=== PATIENT | female | born 1990 | race African-American/Black ===

== ENCOUNTER 2018-11-04 07:37 | Inpatient (IN) | payer BC, MEDICAID ==
[2018-11-04] VITALS (7 sets, daily range): BP systolic 118–136; BP diastolic 62–92
[~2018-11-04] VITALS: Ht 167.6 cm; Wt 68.0 kg
[~2018-11-04 07:37] MED LIST: ALBUTEROL SULF8.5 GM INH; CEPHALEXIN500 MG ORAL; CLARITIN-D 121 EAC1 ORAL; PROMETHAZINE-C118 M1 ORAL; TYLENOL EXTRA500 MG ORAL; ZITHROMAX TRI-500 MG ORAL
--- NOTE | 2018-11-04 08:13 | NUR ---
ED Nurse Note: PT. ANA. AMBULATORY. CAME IN TO ER DUE TO LOWER BACK PAIN X 3DAYS WITH CONSTIPATION X 7 DAYS. NO MEDS TAKEN PRIOR TO ER ARRIVAL
--- NOTE | 2018-11-04 08:20 | NUR ---
ED Nurse Note: ERMD at bedside.
[2018-11-04] MEDS ORDERED: Isovue-300 100ml vial INJ PRN (08:30)
[2018-11-04] MEDS ORDERED: HYDROmorphone 1mg/ml Carpuject IVP ONE (08:30)
--- NOTE | 2018-11-04 08:30 | NUR ---
ED Nurse Note: will move to regular room from fast track for further assessment and evaluation.
--- NOTE | 2018-11-04 08:31 | Emergency Room Report ---
History of Present Illness General Chief Complaint: Lower Back Pain or Injury Source: Patient Present Illness HPI Otherwise healthy female who complains of abdominal pain on the left lower quadrant with no radiation of the last 3 days. She was seen at [facility] yesterday and had an ultrasound showed which showed "kidney contusion". She complains of multiple episodes of vomiting. Cannot hold anything down. She describes the pain as dull. Allergies: Coded Allergies: No Known Allergies (Unverified , 08/09/14) Patient History Past Medical History: none Past Surgical History: none Pertinent Family History: none Now: No Nursing Documentation-[facility] Past Medical History: No History, Except For Hx Asthma: Yes Review of Systems All Other Systems: negative except mentioned in HPI Physical Exam Vital Signs Date Time Temp Pulse Resp B/P (MAP) Pulse Ox O2 Delivery O2 Flow Rate FiO2 11/04/18 07:47 98.8 58 19 126/74 98 Room Air General Appearance: well appearing, no apparent distress Head: normocephalic, atraumatic ENT: hearing grossly normal, normal voice Neck: full range of motion, supple Respiratory: no respiratory distress, speaking full sentences Gastrointestinal: soft, other - mild tenderness to LLQ. No guarding, no rebound Genitourinary: normal inspection, no CVA tenderness Neurologic: normal inspection, alert, oriented x3 Medical Decision Making Diagnostic Impression: Primary Impression: Vomiting ER Course Patient presents significant complexity or risk requiring multiple bedside evaluation. Patient alert and nontoxic appearing. No other associated symptoms. I was particularly very concern about intractable vomiting, mesenteric ischemia, diverticulitis, ovarian torsion, pyelonephritis. Patient has had multiple bedside evaluations. The patient had a CT done. She was also given IV fluids. However the patient is not able to tolerate a by mouth challenge despite multiple attempts and despite antiemetic medications. Therefore, the patient will be admitted to the MedSur unit for observation for intractable vomiting. CT/MRI/US Diagnostic Results CT/MRI/US Diagnostic Results : Impression CT of abdomen and pelvis showed distentio small loops of bowel with air-fluid levels. Suggestive of mild ileus or enteris No evidence of bowel obstruction. Last Vital Signs Date Time Temp Pulse Resp B/P (MAP) Pulse Ox O2 Delivery O2 Flow Rate FiO2 11/04/18 07:50 98.8 58 19 126/74 98 Room Air Disposition: ADMITTED INPATIENT Condition: Serious ALBERTO MATHIS Nov 04, 2018 08:31
--- NOTE | 2018-11-04 08:42 | NUR ---
ED Nurse Note: IVF and medication given. pt reported that she has been dehydrated and cannot urinate at this moment. will take urine sample later.
[2018-11-04 08:50] LABS: BASOPHILS % (AUTO) 0.4 % (0.0-2.0); EOSINOPHILS % (AUTO) 0.1 % (0.0-3.0); HEMATOCRIT 42.7 % (37.0-47.0); HEMOGLOBIN 14.3 G/DL (12.0-16.0); LYMPHOCYTES % (AUTO) 10.9 % (20.0-45.0); MEAN CORPUSCULAR VOLUME 94 FL (80-99); MONOCYTES % (AUTO) 6.7 % (1.0-10.0); NEUTROPHILS % (AUTO) 81.8 % (45.0-75.0); PLATELET COUNT 229 K/UL (150-450); RED BLOOD COUNT 4.55 M/UL (4.20-5.40); RED CELL DISTRIBUTION WIDTH 12.3 % (11.6-14.8); WHITE BLOOD COUNT 13.3 K/UL (4.8-10.8)
[2018-11-04 08:59] LABS: ANION GAP 8 mmol/L (5-15); BLOOD UREA NITROGEN 25 mg/dL (7-18); CALCIUM 9.8 MG/DL (8.5-10.1); CARBON DIOXIDE 26 MMOL/L (21-32); CHLORIDE 105 MMOL/L (98-107); CREATININE 1.4 MG/DL (0.55-1.30); POTASSIUM 3.9 MMOL/L (3.5-5.1); SODIUM 139 MMOL/L (136-145)
[2018-11-04 09:10] LABS: ALANINE AMINOTRANSFERASE 21 U/L (12-78); ALBUMIN 4.4 G/DL (3.4-5.0); ALBUMIN/GLOBULIN RATIO 1.3 (1.0-2.7); ALKALINE PHOSPHATASE 44 U/L (46-116); ASPARTATE AMINO TRANSFERASE 36 U/L (15-37); BILIRUBIN,TOTAL 1.2 MG/DL (0.2-1.0)
--- NOTE | 2018-11-04 09:26 | NUR ---
ED Nurse Note: Pt still unable to urinate at this time.
[2018-11-04 09:32] LABS: BILIRUBIN,DIRECT 0.3 MG/DL (0.0-0.3)
--- NOTE | 2018-11-04 10:15 | NUR ---
ED Nurse Note: Collected urine and sent.
--- NOTE | 2018-11-04 10:39 | NUR ---
ED Nurse Note: Dr Vamsi mccann to continue with CT abdome with contrast with creatinine of 1.4. Waiting for urine test result.
--- NOTE | 2018-11-04 10:50 | NUR ---
ED Nurse Note: Called lab to ff up with urine reflex microscopy test.
[2018-11-04 10:53] LABS: APPEARANCE,URINE CLEAR; BILIRUBIN, URINE NEGATIVE (NEGATIVE); GLUCOSE, URINE (UA) NEGATIVE (NEGATIVE); KETONES,URINE 3+ (NEGATIVE); LEUKOCYTE ESTERASE ,URINE 1+ (NEGATIVE); NITRITE,URINE NEGATIVE (NEGATIVE); PH,URINE 6 (4.5-8.0); PROTEIN,URINE 2+ (NEGATIVE); UROBILINOGEN,URINE NORMAL MG/DL (0.0-1.0)
[2018-11-04 10:57] LABS: COLOR,URINE YELLOW
--- NOTE | 2018-11-04 10:59 | NUR ---
ED Nurse Note: Pt taken to CT via dylan.
--- NOTE | 2018-11-04 11:11 | NUR ---
ED Nurse Note: Pt came back from CT and stable. VSS.
--- NOTE | 2018-11-04 11:33 | Diagnostic Imaging Report ---
EXAM: CT Abdomen and Pelvis With Intravenous Contrast CLINICAL HISTORY: PAIN TECHNIQUE: Axial computed tomography images of the abdomen and pelvis with intravenous contrast. CTDI is 11.57 mGy and DLP is 624 mGy-cm. One or more of the following dose reduction techniques were used: automated exposure control, adjustment of the mA and/or kV according to patient size, use of iterative reconstruction technique. COMPARISON: No relevant prior studies available. FINDINGS: Lung bases: Unremarkable. No consolidation. No effusions. ABDOMEN: Liver: Unremarkable. No mass. Gallbladder and bile ducts: Unremarkable. No calcified stones. No ductal dilation. Pancreas: Unremarkable. No mass. No ductal dilation. Spleen: Unremarkable. No splenomegaly. Adrenals: Unremarkable. No mass. Kidneys and ureters: Unremarkable. No solid mass. No hydronephrosis. Stomach and bowel: Mild distention of small bowel loops with luminal air fluid levels, most prominent in the left upper quadrant, suggesting mild ileus or enteritis. No evidence of bowel obstruction. Mild fecal retention in the right colon. Remainder of the colon appears unremarkable. GE junction and stomach appear unremarkable. PELVIS: Appendix: The appendix appears normal. Bladder: Unremarkable. No visible stones. Reproductive: 1.5 cm peripherally enhancing right ovarian cyst. The uterus and ovaries otherwise appear unremarkable. ABDOMEN and PELVIS: Intraperitoneal space: Trace free fluid in the pelvic cul-de-sac, also likely physiologic. No free air. Bones/joints: No acute fracture. No dislocation. Soft tissues: Unremarkable. Vasculature: Unremarkable. No abdominal aortic aneurysm. Lymph nodes: Unremarkable. No enlarged lymph nodes. IMPRESSION: 1. Mild distention of small bowel loops with luminal air fluid levels, most prominent in the left upper quadrant, suggesting mild ileus or enteritis. No evidence of bowel obstruction. 2. 1.5 cm peripherally enhancing right ovarian cyst. This is likely a physiologic cyst, such as a corpus luteum. 3. Trace free fluid in the pelvic cul-de-sac, also likely physiologic.
--- NOTE | 2018-11-04 13:05 | NUR ---
ED Nurse Note: Pt is asking for more pain medication. 04/[address] Agustin notified and waiting for new orders.
--- NOTE | 2018-11-04 13:38 | NUR ---
ED Nurse Note: Mother at the bed side.
[2018-11-04] MEDS: Sodium Chloride 550 ML IV SCH ×2 (13:54→18:24)
[2018-11-04] MEDS ORDERED: Morphine Sulfate 4mg/ml Inj (IV USE ONLY) IVP ONE (14:00)
--- NOTE | 2018-11-04 14:02 | NUR ---
ED Nurse Note: Dr Vargas at the bed side.
[2018-11-04] MEDS ORDERED: Morphine Sulfate 2mg/ml Inj(IV/IM USE ONLY) IVP PRN (14:15)
--- NOTE | 2018-11-04 14:18 | NUR ---
ED Nurse Note: Report given to Tara GRANADOS of Med surg unit.
--- NOTE | 2018-11-04 15:30 | NUR ---
NURSE NOTES: Received report from Jazmin GRANADOS. pt a/a/o x4 laying in bed with no signs of distress or other issues at this time. pt c/o of pain in the LLQ pain radiating to the back. per report it was given Dilaudid and Morphine in the ER prior to transfer patient up to the floor. RN will medicate as indicated by MD. IV on the left A gauge #20 running NS bolus, RN will change fluids as MD ordered. VS WNL:98.0, 53, 18, 136/84 99% RA, however pt HR is the lows 43-48. RN notified Dr. Vargas, who stated that he is aware and that stockbroker has seen the patient. pt's mother at the bedside. RN will carry on orders and will f/u as needed.
--- NOTE | 2018-11-04 16:00 | History and Physical Report ---
DATE OF ADMISSION: 11/04/2018 REASON FOR ADMISSION: Nausea, vomiting. HISTORY OF PRESENT ILLNESS: The patient is a 28-year-old female who presented to the emergency room for evaluation and care of abdominal pain with nausea, vomiting over the past 3 to 7 days. The patient had been seen at [facility] yesterday. The patient was given IV pain medication and discharged home. She returns complaining of nausea and vomiting, not being able to eat or drink and keep anything down. In the emergency room, CT of the abdomen and pelvis was undertaken, which showed mild distention of small bowel loops with luminal air-fluid levels suggesting either very mild ileus or enteritis. No evidence of bowel obstruction. The patient says she has low back pain and is requesting narcotics. PAST MEDICAL HISTORY: None. PAST SURGICAL HISTORY: None. FAMILY HISTORY: Noncontributory. REVIEW OF SYSTEMS: NEUROLOGIC: The patient denies headache, change in vision, syncope, presyncopal episodes. CARDIOVASCULAR: No current chest pain, palpitations, angina. PULMONARY: No difficulty breathing, productive cough, sputum. GASTROINTESTINAL/GENITOURINARY: The patient having nausea and vomiting. No diarrhea. Had been constipated, but has not eaten over the past week. LABORATORY DATA: Dated 11/04/2018, white cell count 13.3, hemoglobin 14.3, platelet count 229. Sodium 139, potassium 3.9, BUN 25, creatinine 1.4, calcium 9.8. Total bilirubin 1.2, direct bilirubin 0.3. AST and ALT within normal limits. Alkaline phosphatase 44, albumin 4.4. Quantitative hCG 1. PHYSICAL EXAMINATION: VITAL SIGNS: Blood pressure 125/81, respiratory rate 18, pulse 62, temperature 97.8, 100% oxygen saturation on room air. GENERAL: The patient awake, in no overt distress. HEENT: Extraocular muscles intact. No lymphadenopathy. Oropharyngeal mucosa clear and dry. CARDIOVASCULAR: S1 and S2. No rubs or gallops. Regular rate. PULMONARY: Clear to auscultation bilaterally. No rales, rhonchi, or wheezes. ABDOMINAL: Nondistended, nontender. EXTREMITIES: No edema noted. ASSESSMENT AND PLAN: 1. Nausea, vomiting with no diarrhea suspicious for viral gastroenteritis. The patient will be aggressively hydrated and Zofran initiated. 2. Abdominal pain. The patient complaining mainly of nausea and vomiting with no diarrhea. Gastroenterology has been consulted. Most likely viral gastroenteritis. We will continue to monitor and hydrate the patient. 3. DVT prophylaxis with SCDs. 4. Acute kidney injury with creatinine up to 1.4 in a 28-year-old female. We will continue aggressive hydration. Recheck a.m. labs. Renal function should improve with hydration as this is most likely prerenal in nature. Luis Enrique Vargas MD DR: SKYLER JOB#: [id number] CC:
[2018-11-04] MEDS: D5NS 1,000 ML IV SCH (18:57)
--- NOTE | 2018-11-04 19:00 | NUR ---
Report received from DARWIN Pacheco.
--- NOTE | 2018-11-04 19:17 | NUR ---
HAND-OFF: Report given to Roge Rhodes pt instable condition.
--- NOTE | 2018-11-04 20:00 | NUR ---
Patient c/o nausea. Zofran was given at 1856. c/o headache, was given Tylenol. Would like Dilaudid instead of Morphine. Feels scratchy throat. Dr Vargas called, left message with above info.
--- NOTE | 2018-11-04 20:30 | NUR ---
NURSE NOTES: Patient alert, oriented. Bed in lowest position, call light within reach, side rails up x2. Visitor (mom) at bedside. Given ice chips. IVF on RAC, intact. Will continue to monitor.
--- NOTE | 2018-11-04 21:07 | NUR ---
NURSE NOTES: Called Dr Vargas, left message requesting med for nausea as Zofran is not due yet, Patient would like Dilaudid instead of Morphine for pain and c/o scratchy throat.
[2018-11-04] MEDS ORDERED: Guaifenesin/DM 10ml syrup ORAL PRN (21:30)
--- NOTE | 2018-11-04 21:45 | NUR ---
NURSE NOTES: Dr. Arredondo inputted orders in the computer for nausea and pain medicine. Will carry out orders.
[2018-11-04] MEDS: NS IVPB PRN (22:13)
[2018-11-04] MEDS: PROMETHAZINE HCL IVPB PRN (22:13)
[2018-11-04] MEDS: HYDROmorphone 1mg/ml Carpuject IM PRN (22:16)
[2018-11-05] VITALS: BP 113/63
[2018-11-05] MEDS: D5NS 1,000 ML IV SCH ×3 (00:42→18:54)
[2018-11-05 04:00] VITALS: BP 119/76
[2018-11-05] MEDS: HYDROmorphone 1mg/ml Carpuject IM PRN ×3 (04:34→17:28)
[2018-11-05] MEDS: NS IVPB PRN ×2 (04:45→17:28)
[2018-11-05] MEDS: PROMETHAZINE HCL IVPB PRN ×2 (04:45→17:28)
[2018-11-05 06:55] LABS: BASOPHILS % (AUTO) 0.9 % (0.0-2.0); EOSINOPHILS % (AUTO) 0.3 % (0.0-3.0); HEMATOCRIT 36.2 % (37.0-47.0); LYMPHOCYTES % (AUTO) 10.1 % (20.0-45.0); MEAN CORPUSCULAR VOLUME 96 FL (80-99); MONOCYTES % (AUTO) 6.9 % (1.0-10.0); NEUTROPHILS % (AUTO) 81.7 % (45.0-75.0); PLATELET COUNT 174 K/UL (150-450); RED BLOOD COUNT 3.78 M/UL (4.20-5.40); RED CELL DISTRIBUTION WIDTH 12.1 % (11.6-14.8); WHITE BLOOD COUNT 10.5 K/UL (4.8-10.8)
[2018-11-05 07:19] LABS: ANION GAP 4 mmol/L (5-15); BLOOD UREA NITROGEN 20 mg/dL (7-18); CALCIUM 8.7 MG/DL (8.5-10.1); CARBON DIOXIDE 28 MMOL/L (21-32); CHLORIDE 109 MMOL/L (98-107); POTASSIUM 3.9 MMOL/L (3.5-5.1); SODIUM 141 MMOL/L (136-145)
--- NOTE | 2018-11-05 07:37 | NUR ---
HAND-OFF: Report given to DARWIN Garcia. Pt in stable condition.
[2018-11-05 08:00] VITALS: BP 127/92
--- NOTE | 2018-11-05 09:42 | NUR ---
CASE MANAGEMENT:REVIEW 28YR OLD FEMALE TO ER CC; NAUSEA, VOMITING AND BACK PAIN SI: INTRACTABLE VOMITING 98.8 58 19 126/74 98% ON RA WBC+13.3 BUN+25 CR+1.4 IS: IV ZOFRAN IV DILAUDID 1L NS BOLUS X2 CT ABD/PELVIS : TELEMETRY STATUS
--- NOTE | 2018-11-05 10:13 | Nephrology Progress Note ---
Assessment/Plan Assessment/Plan A/P 1) IGNACIO- due to prenal vol depletion - resolved. Continue IVFs 2) N/V- likley viral gastroenteritis - IVFs and await GI evaluation 3) Narcotic seeking Behaviour- patient demanding dilaudid 4) DVT Prophylaxsis- SCDs DC patient once cleared by GI Subjective Date patient seen: Nov 05, 2018 Time patient seen: 10:10 ROS Limited/Unobtainable: No Gastrointestinal/Abdominal: Reports: nausea, vomiting Allergies: Coded Allergies: No Known Allergies (Unverified , 08/09/14) All Systems: reviewed and negative except above Subjective Patient looks better. Still nauseated with episodes of emesis Objective Last 24 Hour Vital Signs Date Time Temp Pulse Resp B/P (MAP) Pulse Ox O2 Delivery O2 Flow Rate FiO2 11/05/18 08:00 99.1 61 16 127/92 (104) 99 11/05/18 04:00 99.1 49 18 119/76 (90) 99 11/05/18 00:00 99.0 57 16 113/63 (80) 99 11/04/18 21:00 Room Air 11/04/18 20:00 98.4 45 16 136/92 (107) 98 11/04/18 16:30 98.0 53 18 136/84 (101) 100 11/04/18 16:02 Room Air 11/04/18 15:05 98.6 58 16 118/62 100 Room Air 11/04/18 15:05 98.6 58 18 118/62 100 Room Air 11/04/18 14:24 98.6 11/04/18 12:35 97.8 62 18 125/81 100 Room Air Intake and Output 11/04/18 11/05/18 19:00 07:00 Intake Total 2000 ml 1212 ml Output Total 0 ml 50 ml Balance 2000 ml 1162 ml Intake Oral 0 ml IV Total 2000 ml 1212 ml Output Urine Total 0 ml Emesis 50 ml # Voids 1 Laboratory Tests 11/04/18 10:15: Urine Color Yellow, Urine Appearance Clear, Urine pH 6, Urine Specific [place] 1.015, Urine Protein 2+H, Urine Glucose (UA) Negative, Urine Ketones 3+H, Urine Blood 1+H, Urine Nitrite Negative, Urine Bilirubin Negative, Urine Urobilinogen Normal, Urine Leukocyte Esterase 1+H, Urine RBC 0-2, Urine WBC 2-4, Urine Squamous Epithelial Cells ModerateH, Urine Bacteria Few, Urine Mucus FewH, Urine HCG, Qualitative Negative 11/05/18 06:15: White Blood Count 10.5, Red Blood Count 3.78L, Hemoglobin 12.0, Hematocrit 36.2L , Mean Corpuscular Volume 96, Mean Corpuscular Hemoglobin 31.6H, Mean Corpuscular Hemoglobin Concent 33.1, Red Cell Distribution Width 12.1, Platelet Count 174, Mean Platelet Volume 7.5, Neutrophils (%) (Auto) 81.7H, Lymphocytes ( %) (Auto) 10.1L, Monocytes (%) (Auto) 6.9, Eosinophils (%) (Auto) 0.3, Basophils (%) (Auto) 0.9, Sodium Level 141, Potassium Level 3.9, Chloride Level 109H, Carbon Dioxide Level 28, Anion Gap 4L, Blood Urea Nitrogen 20H, Creatinine 1.0, Estimat Glomerular Filtration Rate > 60, Glucose Level 103, Calcium Level 8.7 Height (Feet): 5 Height (Inches): 6.00 Weight (Pounds): 78 General Appearance: no apparent distress, alert EENT: normal ENT inspection Neck: normal alignment, supple Cardiovascular: normal rate, regular rhythm Respiratory/Chest: lungs clear, normal breath sounds Abdomen: non tender, soft Edema: no edema noted Arm (L), no edema noted Arm (R), no edema noted Leg (L), no edema noted Leg (R), no edema noted Pedal (L), no edema noted Pedal (R), no edema noted Generalized Luis Enrique Vargas MD Nov 05, 2018 10:13
--- NOTE | 2018-11-05 11:52 | GI Initial Consult Note ---
History of Present Illness General Date patient seen: Nov 05, 2018 Time patient seen: 11:46 Reason for Hospitalization: Lower Back Pain or Injury Referring physician: VENTURA Reason for Consultation: N/V Present Illness HPI Otherwise healthy female who complains of abdominal pain on the left lower quadrant with no radiation of the last 3 days. She was seen at [facility] yesterday and had an ultrasound showed which showed "kidney contusion". She complains of multiple episodes of vomiting. Cannot hold anything down. She describes the pain as dull. GI consulted for complaints of nausea and vomiting. Patient seen, has complaint of nausea without vomiting. Patient states that she has had a few episodes of rectal bleeding which she describes as bright red. Patient denies any hematocrit emesis or coffee-ground. Current laboratory values reviewed; no anemia or no leukocytosis. No history of endoscopic colonoscopy at this time. Abdominal pelvis CT reviewed noted with a mild distention of the small bowel. The patient is having BMs and passing gas. Home Meds Reported Medications Loratadine/Pseudoephedrine (CLARITIN-D 12 HOUR TABLET) 1 Each Tab.er.12h, 1 TAB ORAL EVERY 12 HOURS, TAB 03/03/16 Discontinued Scripts Cephalexin* (KEFLEX*) 500 Mg Capsule, 500 MG ORAL EVERY 6 HOURS, #40 CAP Prov:Alex Bhatia MD 03/03/16 Acetaminophen* (TYLENOL EXTRA STRENGTH*) 500 Mg Tablet, 500 MG ORAL Q4HR PRN for fever/pain, #30 TAB 0 Refills Prov:Alex Bhatia MD 03/03/16 Albuterol Sulfate* (ALBUTEROL SULFATE MDI*) 8.5 Gm Hfa.aer.ad, 2 PUFF INH Q4H, # 1 INH 0 Refills Prov:ALYX GRIGGS P.A. 08/09/14 Codeine/Promethazine Hcl* (PROMETHAZINE-CODEINE SYRUP*) 118 Ml Syrup, 5 ML ORAL Q6H PRN for For Cough, #120 ML 0 Refills Prov:ALYX GRIGGS P.A. 08/09/14 Azithromycin (ZITHROMAX TRI-ALEX) 500 Mg Tablet, 500 MG ORAL DAILY, #1 PACK Prov:ALYX GRIGGS P.A. 08/09/14 Med list reviewed/reconciled: Yes Allergies: Coded Allergies: No Known Allergies (Unverified , 08/09/14) Patient History PMH Narrative Past Medical History: none Past Surgical History: none Pertinent Family History: none Now: No Nursing Documentation-PM Past Medical History: No History, Except For Hx Asthma: Yes Social History: Denies: smoking, alcohol use, drug use, other Review of Systems All Other Systems: negative except mentioned in HPI Physical Exam Vital Signs Date Time Temp Pulse Resp B/P (MAP) Pulse Ox O2 Delivery O2 Flow Rate FiO2 11/04/18 07:47 98.8 58 19 126/74 98 Room Air Sp02 EP Interpretation: reviewed, normal Labs Laboratory Tests Test 11/05/18 06:15 White Blood Count 10.5 K/UL (4.8-10.8) Red Blood Count 3.78 M/UL (4.20-5.40) L Hemoglobin 12.0 G/DL (12.0-16.0) Hematocrit 36.2 % (37.0-47.0) L Mean Corpuscular Volume 96 FL (80-99) Mean Corpuscular Hemoglobin 31.6 PG (27.0-31.0) H Mean Corpuscular Hemoglobin Concent 33.1 G/DL (32.0-36.0) Red Cell Distribution Width 12.1 % (11.6-14.8) Platelet Count 174 K/UL (150-450) Mean Platelet Volume 7.5 FL (6.5-10.1) Neutrophils (%) (Auto) 81.7 % (45.0-75.0) H Lymphocytes (%) (Auto) 10.1 % (20.0-45.0) L Monocytes (%) (Auto) 6.9 % (1.0-10.0) Eosinophils (%) (Auto) 0.3 % (0.0-3.0) Basophils (%) (Auto) 0.9 % (0.0-2.0) Sodium Level 141 MMOL/L (136-145) Potassium Level 3.9 MMOL/L (3.5-5.1) Chloride Level 109 MMOL/L (98-107) H Carbon Dioxide Level 28 MMOL/L (21-32) Anion Gap 4 mmol/L (5-15) L Blood Urea Nitrogen 20 mg/dL (7-18) H Creatinine 1.0 MG/DL (0.55-1.30) Estimat Glomerular Filtration Rate > 60 mL/min (>60) Glucose Level 103 MG/DL (74-106) Calcium Level 8.7 MG/DL (8.5-10.1) General Appearance: well appearing, no apparent distress, alert Head: normocephalic EENT: PERRL/EOMI, normal ENT inspection Neck: supple Respiratory: normal breath sounds, no respiratory distress Cardiovascular: normal rate Gastrointestinal: normal inspection, non tender, soft, normal bowel sounds, non -distended Rectal: deferred Genitourinary: no CVA tenderness Musculoskeletal: normal inspection, back normal Neurologic: normal inspection, alert, oriented x3, responsive Psychiatric: normal inspection, judgement/insight normal, memory normal Skin: normal inspection, normal color, no rash, warm/dry, palpation normal, well hydrated Lymphatic: normal inspection, no adenopathy Current Medications Current Medications Medications (Trade) Dose Ordered Sig/Linda Route PRN Reason Start Time Stop Time Status Last Admin Dose Admin Acetaminophen (Tylenol) 650 mg Q4H PRN ORAL Mild Pain (Pain Scale 1-3) 11/04/18 13:45 12/04/18 13:44 11/04/18 19:55 Barium Sulfate (Readi-Cat 2) 450 ml NOW PRN ORAL Radiology Procedure 11/04/18 08:30 11/06/18 08:26 Dextrose (Dextrose 50%) 25 ml Q30M PRN IV Hypoglycemia 11/04/18 13:45 12/04/18 13:44 Dextrose (Dextrose 50%) 50 ml Q30M PRN IV Hypoglycemia 11/04/18 13:45 12/04/18 13:44 Dextrose/Sodium Chloride 1,000 ml @ 100 mls/hr Q10H IV 11/04/18 14:42 12/04/18 14:41 11/05/18 07:18 Diphenhydramine HCl (Benadryl) 25 mg Q6H PRN ORAL Itching/Pruritis 11/04/18 13:45 12/04/18 13:44 Guaifenesin/ Dextromethorphan (Robitussin DM Syrup) 10 ml Q4H PRN ORAL For Cough 11/04/18 21:30 12/04/18 21:29 Hydromorphone HCl (Dilaudid) 0.5 mg Q4H PRN IM Moderate Pain (Pain Scale 4-6) 11/04/18 21:30 11/11/18 21:29 11/05/18 10:11 Iopamidol (Isovue-300 100ml) 100 ml NOW PRN INJ Radiology Procedure 11/04/18 08:30 Ondansetron HCl (Zofran) 4 mg Q6H PRN IVP Nausea & Vomiting 11/04/18 13:45 12/04/18 13:44 11/05/18 10:10 Promethazine HCl 25 mg/Sodium Chloride 56 ml @ 112 mls/hr Q6H PRN IVPB Refractory N/V 11/04/18 21:45 12/04/18 21:44 11/05/18 04:45 GI: Plan Problems: (1) Intractable vomiting (2) Vomiting (3) Viral syndrome Plan Abdominal pelvis CT reviewed >> Mild distention of small bowel loops with luminal air fluid levels, most prominent in the left upper quadrant, suggesting mild ileus or enteritis. No evidence of bowel obstruction. Avoid narcotic use, await bowel function to return symptomatic treatment at this time zofran prn IV hydration CLD, advance as tolerated OB stool r/o any GI bleed, which most likely is hemorrhoidal utox ordered follow labs Discussed with Dr. Wilson. Thank you for this patient referral, we will follow. The patient was seen and examined at bedside and all new and available data was reviewed in the patients chart. I agree with the above findings, impression and plan. (Patient seen earlier today. Signature stamp does not reflect patient encounter time.). - MD Nubia GaryAurora West HospitalDuarte PLASTIC PANEL INSTALLER Nov 05, 2018 11:52
[2018-11-05 12:00] VITALS: BP 127/87
--- NOTE | 2018-11-05 13:49 | Cardiology Progress Note ---
Assessment/Plan Assessment/Plan The patient is seen and examined, full consult note will be dictated. Objective Last 24 Hour Vital Signs Date Time Temp Pulse Resp B/P (MAP) Pulse Ox O2 Delivery O2 Flow Rate FiO2 11/05/18 12:00 98.6 59 16 127/87 (100) 99 11/05/18 09:00 Room Air 11/05/18 08:00 99.1 61 16 127/92 (104) 99 11/05/18 04:00 99.1 49 18 119/76 (90) 99 11/05/18 00:00 99.0 57 16 113/63 (80) 99 11/04/18 21:00 Room Air 11/04/18 20:00 98.4 45 16 136/92 (107) 98 11/04/18 16:30 98.0 53 18 136/84 (101) 100 11/04/18 16:02 Room Air 11/04/18 15:05 98.6 58 16 118/62 100 Room Air 11/04/18 15:05 98.6 58 18 118/62 100 Room Air 11/04/18 14:24 98.6 Intake and Output 11/04/18 11/05/18 18:59 06:59 Intake Total 2000 ml 1212 ml Output Total 0 ml 50 ml Balance 2000 ml 1162 ml Intake Oral 0 ml IV Total 2000 ml 1212 ml Output Urine Total 0 ml Emesis 50 ml # Voids 1 Laboratory Tests Test 11/05/18 06:15 White Blood Count 10.5 K/UL (4.8-10.8) Red Blood Count 3.78 M/UL (4.20-5.40) L Hemoglobin 12.0 G/DL (12.0-16.0) Hematocrit 36.2 % (37.0-47.0) L Mean Corpuscular Volume 96 FL (80-99) Mean Corpuscular Hemoglobin 31.6 PG (27.0-31.0) H Mean Corpuscular Hemoglobin Concent 33.1 G/DL (32.0-36.0) Red Cell Distribution Width 12.1 % (11.6-14.8) Platelet Count 174 K/UL (150-450) Mean Platelet Volume 7.5 FL (6.5-10.1) Neutrophils (%) (Auto) 81.7 % (45.0-75.0) H Lymphocytes (%) (Auto) 10.1 % (20.0-45.0) L Monocytes (%) (Auto) 6.9 % (1.0-10.0) Eosinophils (%) (Auto) 0.3 % (0.0-3.0) Basophils (%) (Auto) 0.9 % (0.0-2.0) Sodium Level 141 MMOL/L (136-145) Potassium Level 3.9 MMOL/L (3.5-5.1) Chloride Level 109 MMOL/L (98-107) H Carbon Dioxide Level 28 MMOL/L (21-32) Anion Gap 4 mmol/L (5-15) L Blood Urea Nitrogen 20 mg/dL (7-18) H Creatinine 1.0 MG/DL (0.55-1.30) Estimat Glomerular Filtration Rate > 60 mL/min (>60) Glucose Level 103 MG/DL (74-106) Calcium Level 8.7 MG/DL (8.5-10.1) Todd Cheung MD Nov 05, 2018 13:49
[2018-11-05 16:00] VITALS: BP 133/89
--- NOTE | 2018-11-05 19:20 | NUR ---
NURSE NOTES: Report taken From DARWIN Hdz. Patient in bed, A&Ox4. No signs of distress on room air. States that hot packs feel better for the pain relief than pain meds. pain at about 4/10. IV site is c/d/i and patent. Patient is able to ambulate. In stable condition. Bed in lowest position, call light within reach.
--- NOTE | 2018-11-05 19:30 | NUR ---
HAND-OFF: Report given to DARWIN Phelan
[2018-11-06] MEDS: D5NS 1,000 ML IV SCH (04:24)
[2018-11-06] MEDS: HYDROmorphone 1mg/ml Carpuject IM PRN ×2 (04:25→10:02)
[2018-11-06 07:13] LABS: ANION GAP 5 mmol/L (5-15); BLOOD UREA NITROGEN 15 mg/dL (7-18); CALCIUM 8.4 MG/DL (8.5-10.1); CARBON DIOXIDE 27 MMOL/L (21-32); CHLORIDE 106 MMOL/L (98-107); CREATININE 0.8 MG/DL (0.55-1.30); POTASSIUM 3.3 MMOL/L (3.5-5.1); SODIUM 138 MMOL/L (136-145)
--- NOTE | 2018-11-06 07:20 | NUR ---
HAND-OFF: Report given to Afsoon. Patient is in stable condition.
--- NOTE | 2018-11-06 07:30 | NUR ---
NURSE NOTES: Received pt from DARWIN OKEEFE. Pt is alert and oriented x4. pt in RA. No SOB or acute respiratory distress noted. pt has intact iv access RAC 20g is running well. Pt feels nausea but refused zofran at this moment. all needs attended, bed is locked and is in the lowest position. call light within easy reach. will continue to monitor.
[2018-11-06 07:35] LABS: BASOPHILS % (AUTO) 1.1 % (0.0-2.0); EOSINOPHILS % (AUTO) 0.5 % (0.0-3.0); HEMATOCRIT 33.7 % (37.0-47.0); HEMOGLOBIN 11.2 G/DL (12.0-16.0); LYMPHOCYTES % (AUTO) 15.1 % (20.0-45.0); MEAN CORPUSCULAR VOLUME 95 FL (80-99); MONOCYTES % (AUTO) 11.5 % (1.0-10.0); NEUTROPHILS % (AUTO) 71.8 % (45.0-75.0); PLATELET COUNT 153 K/UL (150-450); RED BLOOD COUNT 3.54 M/UL (4.20-5.40); RED CELL DISTRIBUTION WIDTH 11.9 % (11.6-14.8); WHITE BLOOD COUNT 6.8 K/UL (4.8-10.8)
[2018-11-06 08:00] VITALS: BP 131/89
--- NOTE | 2018-11-06 08:00 | NUR ---
NURSE NOTES: called [employer] regarding K 3.3, left massage waiting to call back. will continue to monitor.
--- NOTE | 2018-11-06 09:45 | Consultation ---
DATE OF CONSULTATION: 11/05/2018 CARDIOLOGY CONSULTATION CONSULTING PHYSICIAN: Todd Cheung M.D. REFERRING PHYSICIAN: Luis Enrique Vargas M.D. REASON FOR CONSULTATION: Bradycardia. HISTORY OF PRESENT ILLNESS: The patient is a very unfortunate 28-year-old female, who presents to the hospital with complaints of abdominal pain in the left lower quadrant, multiple episodes of vomiting, and inability to keep p.o. The patient was recently seen at [facility] and according to her, ultrasound showed that there is some evidence of a kidney contusion. At the time of arrival to this facility, the patient's blood pressure was 126/74 mmHg, although she was very bradycardic, at heart rate of 68. There was no prior history of cardiovascular diseases, however, at the request of Dr. Vargas, Cardiology consultation was made to evaluate and manage bradycardia. A 12-lead electrocardiogram was significant for sinus bradycardia with no evidence of acute ischemic changes with LVH or presence of . The patient was admitted to non-telemetry unit for further evaluation and management. PAST MEDICAL HISTORY: Asthma. PAST SURGICAL HISTORY: None. FAMILY HISTORY: No premature coronary artery disease or arrhythmogenic in the first-degree relatives. ALLERGIES: No known drug allergies. MEDICATIONS: list of medication Claritin-D one tablet q.12 hours. REVIEW OF SYSTEMS: A 12-system review done essentially negative except what was mentioned in the history of present illness. The patient in addition to what is stated in the history of present illness, complains of shortness of breath in the past few days as well. PHYSICAL EXAMINATION: VITAL SIGNS: Blood pressure was 126/74, pulse of 58, respirations 19, temperature 98.8 degrees Fahrenheit, and O2 saturation 98% on room air. GENERAL: The patient is a very pleasant 28-year-old female, in no apparent respiratory distress. Awake and alert x4. HEENT: Atraumatic and normocephalic. Anicteric. Pupils are equal, round, and reactive to light and accommodation. Extraocular muscles intact. NECK: JVP less than 5 cm. No carotid bruit. Carotid upstroke is 2+ bilaterally. CARDIOVASCULAR: Normal S1, S2. Regular rate and rhythm. No murmurs, gallops, or rubs. PMI is at fourth intercostal space in the midclavicular line. LUNGS: Clear to auscultation bilaterally. ABDOMEN: Soft, nontender, and nondistended. No hepatosplenomegaly. Positive bowel sounds. EXTREMITIES: No evidence of edema, clubbing, or cyanosis. LABORATORY FINDINGS: WBC was 13.3, hemoglobin of 14.3, hematocrit of 42.7, and platelet count is 229. Sodium 139, potassium 3.9, chloride 105, bicarbonate 26, BUN 25, creatinine 1.4, glucose 120, calcium is 9.8. Toxicology showed positive marijuana. A 2D echocardiography showed normal LV systolic function with LVEF of 60%. Normal right ventricular systolic pressure at 30 mmHg and mild pulmonary regurgitation. A dilated IVC at 2.5 with physiologic collapse suggestive of right atrial pressure is slightly elevated at 10 mmHg. ASSESSMENT AND PLAN: The patient is a very unfortunate 28-year-old female, was seen in Cardiology consultation. 1. Sinus bradycardia. This could be secondary to frequent episode of nausea and vomiting and stimulation of vagal tone. However, the sinus bradycardia is currently controlled and the patient is in sinus rhythm. A 2D echocardiography does not show any structural heart abnormalities. I would however consider thyroid stimulating hormone measurements. 2. Acute renal failure with creatinine of 1.4. On admission, which was resolved with hydration and currently creatinine down to 1.0. 3. History of asthma. I would like to thank, Dr. Vargas, for allowing me to participate in the care of this patient. Todd Cheung M.D. DR: KAZ JOB#: [id number] CC:
--- NOTE | 2018-11-06 11:11 | Nephrology Progress Note ---
Assessment/Plan Assessment/Plan A/P 1) IGNACIO- due to prenal vol depletion - resolved. DC IVFs 2) N/V- likley viral gastroenteritis - resolved. Advance diet. If tolerated then DC 3) Narcotic seeking Behaviour- patient demanding dilaudid. This has been stopped. tylenol prn 4) DVT Prophylaxsis- SCDs DC patient once cleared by GI and tolerating solid food Subjective Date patient seen: Nov 06, 2018 Time patient seen: 11:09 Allergies: Coded Allergies: No Known Allergies (Unverified , 08/09/14) Subjective Patient looks better. Tolerating liquids and requesting to advance diet Objective Last 24 Hour Vital Signs Date Time Temp Pulse Resp B/P (MAP) Pulse Ox O2 Delivery O2 Flow Rate FiO2 11/06/18 10:32 98.7 11/06/18 09:00 Room Air 11/06/18 08:00 98.7 60 18 131/89 (103) 97 11/05/18 21:00 Room Air 11/05/18 16:00 98.5 54 16 133/89 (104) 97 11/05/18 12:00 98.6 59 16 127/87 (100) 99 Intake and Output 11/05/18 11/06/18 19:00 07:00 Intake Total 1352 ml 100 ml Balance 1352 ml 100 ml Intake Oral 240 ml 100 ml IV Total 1112 ml # Voids 2 2 Laboratory Tests 11/05/18 18:30: Urine Opiates Screen Negative, Urine Barbiturates Screen Negative, Phencyclidine (PCP) Screen Negative, Urine Amphetamines Screen Negative, Urine Benzodiazepines Screen Negative, Urine Cocaine Screen Negative, Urine Marijuana (THC) Screen PositiveH 11/06/18 05:30: White Blood Count 6.8, Red Blood Count 3.54L, Hemoglobin 11.2L, Hematocrit 33.7L , Mean Corpuscular Volume 95, Mean Corpuscular Hemoglobin 31.8H, Mean Corpuscular Hemoglobin Concent 33.3, Red Cell Distribution Width 11.9, Platelet Count 153, Mean Platelet Volume 7.6, Neutrophils (%) (Auto) 71.8, Lymphocytes (% ) (Auto) 15.1L, Monocytes (%) (Auto) 11.5H, Eosinophils (%) (Auto) 0.5, Basophils (%) (Auto) 1.1, Sodium Level 138, Potassium Level 3.3L, Chloride Level 106, Carbon Dioxide Level 27, Anion Gap 5, Blood Urea Nitrogen 15, Creatinine 0.8, Estimat Glomerular Filtration Rate > 60, Glucose Level 107H, Calcium Level 8.4L Height (Feet): 5 Height (Inches): 6.00 Weight (Pounds): 78 General Appearance: no apparent distress, alert EENT: normal ENT inspection Neck: normal alignment, supple Cardiovascular: normal rate, regular rhythm Respiratory/Chest: lungs clear, normal breath sounds Abdomen: non tender, soft Edema: no edema noted Arm (L), no edema noted Arm (R), no edema noted Leg (L), no edema noted Leg (R), no edema noted Pedal (L), no edema noted Pedal (R), no edema noted Generalized Luis Enrique Vargas MD Nov 06, 2018 11:11
[2018-11-06 12:00] VITALS: BP 125/80
--- NOTE | 2018-11-06 15:08 | NUR ---
CASE MANAGEMENT:REVIEW 11/06/18 SI: INTRACTABLE VOMITING. IGNACIO 98.9 53 18 125/80 98% ON RA H/H-11.2/33.7 K-3.3 IS: PHENERGAN PO Q6HRS PRN IV ZOFRAN PRN BENADRYL PO PRN IVF @ 100/HR : MED/SURG STATUS PLAN: ADVANCE TO REGULAR DIET
[2018-11-06 15:51] VITALS: BP 136/81
[2018-11-06] MEDS ORDERED: traMADol 50mg tab ORAL PRN (18:15)
--- NOTE | 2018-11-06 18:41 | General Progress Note ---
Assessment/Plan Assessment/Plan Assessment - enteritis - elevated WBC - now normalized - N/V - improving Recommendations - advance po diet - monitor GI symptoms - IVF - d/c target for tomorrow Subjective Allergies: Coded Allergies: No Known Allergies (Unverified , 08/09/14) Subjective Above noted feeling better tolerating more liquids pain improving Objective Last 24 Hour Vital Signs Date Time Temp Pulse Resp B/P (MAP) Pulse Ox O2 Delivery O2 Flow Rate FiO2 11/06/18 16:42 99.9 11/06/18 15:51 99.9 64 18 136/81 (99) 98 11/06/18 12:00 98.9 53 18 125/80 (95) 98 11/06/18 10:32 98.7 11/06/18 09:00 Room Air 11/06/18 08:00 98.7 60 18 131/89 (103) 97 11/05/18 21:00 Room Air Intake and Output 11/05/18 11/06/18 18:59 06:59 Intake Total 1352 ml 100 ml Balance 1352 ml 100 ml Intake Oral 240 ml 100 ml IV Total 1112 ml # Voids 2 2 Laboratory Tests 11/06/18 05:30: White Blood Count 6.8, Red Blood Count 3.54L, Hemoglobin 11.2L, Hematocrit 33.7L , Mean Corpuscular Volume 95, Mean Corpuscular Hemoglobin 31.8H, Mean Corpuscular Hemoglobin Concent 33.3, Red Cell Distribution Width 11.9, Platelet Count 153, Mean Platelet Volume 7.6, Neutrophils (%) (Auto) 71.8, Lymphocytes (% ) (Auto) 15.1L, Monocytes (%) (Auto) 11.5H, Eosinophils (%) (Auto) 0.5, Basophils (%) (Auto) 1.1, Sodium Level 138, Potassium Level 3.3L, Chloride Level 106, Carbon Dioxide Level 27, Anion Gap 5, Blood Urea Nitrogen 15, Creatinine 0.8, Estimat Glomerular Filtration Rate > 60, Glucose Level 107H, Calcium Level 8.4L Height (Feet): 5 Height (Inches): 6.00 Weight (Pounds): 78 Objective WDWN NCAT supple CTA RRR abd soft, some mild L sided TTP no edema Nata Barroso MD Nov 06, 2018 18:41
--- NOTE | 2018-11-06 18:48 | NUR ---
NURSE NOTES: pt has fever and intolerance food and ABD pain and rectal bleeding Dr Chen is aware, all orders noted and carried out. Urin culture sent to lab, GI consultor is aware. will continue to monitor.
--- NOTE | 2018-11-06 19:40 | NUR ---
NURSE NOTES: Patient was ambulating in the room, steady, alert and oriented x 4. With complaint of blood in the anus. Checked patient's rectal, no active bleeding outside. Patient put her finger in and showed RN, with scant amount of blood. Educated patient. Collected urine but no blood in it. Dr. Barroso made aware and no new order. Instructed the use of call light. Call light and needs in reach. Bed in lowest position and lock engaged. Family at bedside. Will continue to monitor
[2018-11-06 20:00] VITALS: BP 110/72
--- NOTE | 2018-11-06 20:10 | NUR ---
HAND-OFF: Report given to DARWIN NGUYEN.
[2018-11-06] MEDS ORDERED: D5NS 1000ml IV ONE (22:27)
[2018-11-06] MEDS ORDERED: Tubing IV Secondary IV ONE (22:27)
--- NOTE | 2018-11-06 23:50 | Cardiology Progress Note ---
Assessment/Plan Assessment/Plan 1. Sinus bradycardia, resolved, secondary to frequent episode of nausea and vomiting and stimulation of vagal tone. 2. Acute renal failure, resolved. 3. History of asthma. Subjective Subjective Sinus bradycardia at rate of 57. Objective Last 24 Hour Vital Signs Date Time Temp Pulse Resp B/P (MAP) Pulse Ox O2 Delivery O2 Flow Rate FiO2 11/06/18 21:00 Room Air 11/06/18 20:00 99.5 57 18 110/72 (85) 99 11/06/18 18:50 99.9 11/06/18 16:42 100.2 11/06/18 16:42 99.9 11/06/18 16:10 100.8 11/06/18 15:51 99.9 64 18 136/81 (99) 98 11/06/18 12:00 98.9 53 18 125/80 (95) 98 11/06/18 10:32 98.7 11/06/18 09:00 Room Air 11/06/18 08:00 98.7 60 18 131/89 (103) 97 Intake and Output 11/05/18 11/06/18 19:00 07:00 Intake Total 1352 ml 100 ml Balance 1352 ml 100 ml Intake Oral 240 ml 100 ml IV Total 1112 ml # Voids 2 2 2D Echo: LVEF 60%, RVSP 13 mmHg, Increased RAP at 10 mmHg Laboratory Tests Test 11/06/18 05:30 White Blood Count 6.8 K/UL (4.8-10.8) Red Blood Count 3.54 M/UL (4.20-5.40) L Hemoglobin 11.2 G/DL (12.0-16.0) L Hematocrit 33.7 % (37.0-47.0) L Mean Corpuscular Volume 95 FL (80-99) Mean Corpuscular Hemoglobin 31.8 PG (27.0-31.0) H Mean Corpuscular Hemoglobin Concent 33.3 G/DL (32.0-36.0) Red Cell Distribution Width 11.9 % (11.6-14.8) Platelet Count 153 K/UL (150-450) Mean Platelet Volume 7.6 FL (6.5-10.1) Neutrophils (%) (Auto) 71.8 % (45.0-75.0) Lymphocytes (%) (Auto) 15.1 % (20.0-45.0) L Monocytes (%) (Auto) 11.5 % (1.0-10.0) H Eosinophils (%) (Auto) 0.5 % (0.0-3.0) Basophils (%) (Auto) 1.1 % (0.0-2.0) Sodium Level 138 MMOL/L (136-145) Potassium Level 3.3 MMOL/L (3.5-5.1) L Chloride Level 106 MMOL/L (98-107) Carbon Dioxide Level 27 MMOL/L (21-32) Anion Gap 5 mmol/L (5-15) Blood Urea Nitrogen 15 mg/dL (7-18) Creatinine 0.8 MG/DL (0.55-1.30) Estimat Glomerular Filtration Rate > 60 mL/min (>60) Glucose Level 107 MG/DL (74-106) H Calcium Level 8.4 MG/DL (8.5-10.1) L Objective HEENT: Atraumatic and normocephalic. Anicteric. Pupils are equal, round, and reactive to light and accommodation. Extraocular muscles intact. NECK: JVP less than 5 cm. No carotid bruit. Carotid upstroke is 2+ bilaterally. CARDIOVASCULAR: Normal S1, S2. Regular rate and rhythm. No murmurs, gallops, or rubs. PMI is at fourth intercostal space in the midclavicular line. LUNGS: Clear to auscultation bilaterally. ABDOMEN: Soft, nontender, and nondistended. No hepatosplenomegaly. Positive bowel sounds. EXTREMITIES: No evidence of edema, clubbing, or cyanosis. Todd Cheung MD Nov 06, 2018 23:50
[2018-11-07] VITALS: BP 130/88
--- NOTE | 2018-11-07 00:30 | NUR ---
NURSE NOTES: Patient's IV was leaking. Re-inserted IV on the left forearm g.22.
[2018-11-07 08:00] VITALS: BP 130/96
--- NOTE | 2018-11-07 08:00 | NUR ---
NURSE NOTES: Received report from Maggie GRANADOS, pt a/a/o x4 laying in bed with no signs of distress or other issues at this time. however pt stated been bleeding for her rectum, is aware and RN will carry on orders. IV on the Left FA gauge #22 heplock. plan to d/c home today. call light within reach, bed in lowest position, side rales x2. mother at the bed side. I will f/u as needed.
--- NOTE | 2018-11-07 08:09 | NUR ---
HAND-OFF: Report given to DARWIN Pacheco.
--- NOTE | 2018-11-07 09:07 | Pulmonology Progress Note ---
Assessment/Plan Assessment/Plan - enteritis - elevated WBC - now normalized - N/V - improving Recommendations - advance po diet - monitor GI symptoms - IVF dc - d/c home (Per RN; had a streak of blood after self digitally trying to self-disimpact) Subjective Interval Events: Reporting rectal bleeding; per RN had only a streak of blood after self Constitutional: Reports: no symptoms HEENT: Repors: no symptoms Respiratory: Reports: no symptoms Cardiovascular: Reports: no symptoms Gastrointestinal/Abdominal: Reports: no symptoms Genitourinary: Reports: no symptoms Allergies: Coded Allergies: No Known Allergies (Unverified , 08/09/14) Objective Last 24 Hour Vital Signs Date Time Temp Pulse Resp B/P (MAP) Pulse Ox O2 Delivery O2 Flow Rate FiO2 11/07/18 00:00 99.2 66 18 130/88 (102) 100 11/06/18 21:00 Room Air 11/06/18 20:00 99.5 57 18 110/72 (85) 99 11/06/18 18:50 99.9 11/06/18 16:42 100.2 11/06/18 16:42 99.9 11/06/18 16:10 100.8 11/06/18 15:51 99.9 64 18 136/81 (99) 98 11/06/18 12:00 98.9 53 18 125/80 (95) 98 11/06/18 10:32 98.7 Intake and Output 11/06/18 11/07/18 19:00 07:00 Intake Total 350 ml 400 ml Balance 350 ml 400 ml Intake Oral 50 ml 400 ml IV Total 300 ml # Voids 2 4 General Appearance: no acute distress HEENT: normocephalic Respiratory/Chest: chest wall non-tender Cardiovascular: normal peripheral pulses Abdomen: normal bowel sounds Microbiology Date/Time Source Procedure Growth Status 11/06/18 18:37 Urine,Clean Catch Urine Culture - Preliminary NO GROWTH Resulted Current Medications Medications (Trade) Dose Ordered Sig/Linda Route PRN Reason Start Time Stop Time Status Last Admin Dose Admin Acetaminophen (Tylenol) 650 mg Q4H PRN ORAL Mild Pain (Pain Scale 1-3) 11/04/18 13:45 12/04/18 13:44 11/06/18 23:00 Dextrose (Dextrose 50%) 25 ml Q30M PRN IV Hypoglycemia 11/04/18 13:45 12/04/18 13:44 Dextrose (Dextrose 50%) 50 ml Q30M PRN IV Hypoglycemia 11/04/18 13:45 12/04/18 13:44 Diphenhydramine HCl (Benadryl) 25 mg Q6H PRN ORAL Itching/Pruritis 11/04/18 13:45 12/04/18 13:44 11/06/18 02:57 Guaifenesin/ Dextromethorphan (Robitussin DM Syrup) 10 ml Q4H PRN ORAL For Cough 11/04/18 21:30 12/04/18 21:29 Iopamidol (Isovue-300 100ml) 100 ml NOW PRN INJ Radiology Procedure 11/04/18 08:30 Ondansetron HCl (Zofran) 4 mg Q6H PRN IVP Nausea & Vomiting 11/04/18 13:45 12/04/18 13:44 11/07/18 00:37 Promethazine HCl 25 mg/Sodium Chloride 56 ml @ 112 mls/hr Q6H PRN IVPB Refractory N/V 11/04/18 21:45 12/04/18 21:44 11/05/18 17:28 Tramadol HCl (Ultram) 50 mg Q6H PRN ORAL Moderate Breakthru Pain (5-7) 11/06/18 18:15 11/13/18 18:14 11/06/18 18:20 Chico Pierce MD Nov 07, 2018 09:07
[2018-11-07] MEDS ORDERED: ZOFRAN ODT8 MG ORAL (09:09)
[2018-11-07] MEDS ORDERED: Fleet's Mineral Oil Enema RECTAL SCH (09:15)
[2018-11-07 12:00] VITALS: BP 130/85
--- NOTE | 2018-11-07 12:56 | Consultation ---
History of Present Illness General Date patient seen: Nov 07, 2018 Chief Complaint: Lower Back Pain or Injury Referring physician: VENTURA Reason for Consultation: N/V Present Illness HPI 28 y/o F with hx of asthma presents to ED On 11/04 for 3 days of LLQ abd pain, multiple episodes of vomiting and unable to tolerate PO. Upon admission was noted to have sinus bradycardia and was evaluate by cardiology which thought was 2ry to stimulation of vagal tone due to n/v. Also noted to be in IGNACIO. She was seen at [place] 1 day prior to admission and US showed "kidney contusion". Allergies: Coded Allergies: No Known Allergies (Unverified , 08/09/14) Medication History Scheduled Loratadine/Pseudoephedrine (Claritin-D 12 Hour Tablet), 1 TAB ORAL EVERY 12 HOURS, (Reported) Scheduled PRN Ondansetron Odt* (Zofran Odt*), 8 MG ORAL Q6H PRN Discontinued Medications Acetaminophen* (Tylenol Extra Strength*), 500 MG ORAL Q4HR PRN for fever/pain Discontinued Reason: Therapy completed Albuterol Sulfate* (Albuterol Sulfate Mdi*), 2 PUFF INH Q4H Discontinued Reason: Therapy completed Azithromycin (Zithromax Tri-Librado), 500 MG ORAL DAILY Discontinued Reason: Therapy completed Cephalexin* (Keflex*), 500 MG ORAL EVERY 6 HOURS Discontinued Reason: Therapy completed Codeine/Promethazine Hcl* (Promethazine-Codeine Syrup*), 5 ML ORAL Q6H PRN for For Cough Discontinued Reason: Therapy completed Patient History Healthcare decision maker Resuscitation status Full Code Advanced Directive on File Patient History Narrative Pmhx: as above Shx: reviewed Fhx: non contributory Review of Systems All Other Systems: negative except mentioned in HPI Physical Exam Physical Exam Narrative GENERAL: The patient is a very pleasant 28-year-old female, in no apparent respiratory distress. Awake and alert x4. HEENT: Atraumatic and normocephalic. Anicteric. Pupils are equal, round, and reactive to light and accommodation. Extraocular muscles intact. NECK: JVP less than 5 cm. No carotid bruit. Carotid upstroke is 2+ bilaterally. CARDIOVASCULAR: Normal S1, S2. Regular rate and rhythm. No murmurs, gallops, or rubs. PMI is at fourth intercostal space in the midclavicular line. LUNGS: Clear to auscultation bilaterally. ABDOMEN: Soft, nontender, and nondistended. No hepatosplenomegaly. Positive bowel sounds. EXTREMITIES: No evidence of edema, clubbing, or cyanosis. Last 24 Hour Vital Signs Date Time Temp Pulse Resp B/P (MAP) Pulse Ox O2 Delivery O2 Flow Rate FiO2 11/07/18 12:00 98.6 65 18 130/85 (100) 99 11/07/18 08:00 98.2 60 18 130/96 (107) 100 11/07/18 00:00 99.2 66 18 130/88 (102) 100 11/06/18 21:00 Room Air 11/06/18 20:00 99.5 57 18 110/72 (85) 99 11/06/18 18:50 99.9 11/06/18 16:42 100.2 11/06/18 16:42 99.9 11/06/18 16:10 100.8 11/06/18 15:51 99.9 64 18 136/81 (99) 98 Intake and Output 11/06/18 11/07/18 19:00 07:00 Intake Total 350 ml 400 ml Balance 350 ml 400 ml Intake Oral 50 ml 400 ml IV Total 300 ml # Voids 2 4 Microbiology Date/Time Source Procedure Growth Status 11/06/18 18:37 Urine,Clean Catch Urine Culture - Preliminary NO GROWTH Resulted Height (Feet): 5 Height (Inches): 6.00 Weight (Pounds): 78 Medications Current Medications Medications (Trade) Dose Ordered Sig/Linda Route PRN Reason Start Time Stop Time Status Last Admin Dose Admin Acetaminophen (Tylenol) 650 mg Q4H PRN ORAL Mild Pain (Pain Scale 1-3) 11/04/18 13:45 12/04/18 13:44 11/06/18 23:00 Dextrose (Dextrose 50%) 25 ml Q30M PRN IV Hypoglycemia 11/04/18 13:45 12/04/18 13:44 Dextrose (Dextrose 50%) 50 ml Q30M PRN IV Hypoglycemia 11/04/18 13:45 12/04/18 13:44 Diphenhydramine HCl (Benadryl) 25 mg Q6H PRN ORAL Itching/Pruritis 11/04/18 13:45 12/04/18 13:44 11/06/18 02:57 Guaifenesin/ Dextromethorphan (Robitussin DM Syrup) 10 ml Q4H PRN ORAL For Cough 11/04/18 21:30 12/04/18 21:29 Iopamidol (Isovue-300 100ml) 100 ml NOW PRN INJ Radiology Procedure 11/04/18 08:30 Ondansetron HCl (Zofran) 4 mg Q6H PRN IVP Nausea & Vomiting 11/04/18 13:45 12/04/18 13:44 11/07/18 00:37 Promethazine HCl 25 mg/Sodium Chloride 56 ml @ 112 mls/hr Q6H PRN IVPB Refractory N/V 11/04/18 21:45 12/04/18 21:44 11/05/18 17:28 Tramadol HCl (Ultram) 50 mg Q6H PRN ORAL Moderate Breakthru Pain (5-7) 11/06/18 18:15 11/13/18 18:14 11/06/18 18:20 Assessment/Plan Assessment/Plan Abx: None Assessment: Nausea/vomiting- likely viral gastroenteritis- r.o influenza -CT abd/p: Mild distention of small bowel loops with luminal air fluid levels , most prominent in the left upper quadrant, suggesting mild ileus or enteritis. No evidence of bowel obstruction. 1.5 cm peripherally enhancing right ovarian cyst. This is likely a physiologic cyst, such as a corpus luteum. Trace free fluid in the pelvic cul-de-sac, also likely physiologic. Low grade fever No leukocytosis IGNACIO, sp Sinus bradycardia, SP Asthma Plan: -COntinue to monitor off abx -f/u cx -Monitor CBC/CMP, temperatures -CXR, influenza sc, HIV ab sc Thank you for this consultation. Will continue to follow along with you. Discussed with Stephanie Tobar M.D. Nov 07, 2018 12:56
--- NOTE | 2018-11-07 14:51 | Diagnostic Imaging Report ---
Indication: Dyspnea Comparison: None A single view chest radiograph was obtained. Findings: Cardiomediastinal appearance is within normal limits for age. The lungs are clear. Pulmonary vascularity is appropriate. The diaphragmatic contour is smooth and costophrenic angles are sharp. No pleural effusions are identified. The bones are unremarkable. Impression: No acute findings
[2018-11-07 16:00] VITALS: BP 122/85
--- NOTE | 2018-11-07 18:00 | NUR ---
NURSE NOTES: Received order for discharge. discharge instructions and belongings list given to patient as well a prescription for Zofran. pt stated that she will refill at her regular pharmacy. pt's left the floor walking with no signs of distress or other issues at this time. pt's friend will provide transportation.
--- NOTE | 2018-11-07 18:11 | NUR ---
CASE MANAGEMENT:REVIEW 11/07/18 SI: INTRACTABLE VOMITING. IGNACIO T 100.6 HR 76 RR 18 B/P 122/85 SATS 99% ON RA NO LABS TODAY IS: PHENERGAN PO Q6HRS PRN IV ZOFRAN PRN BENADRYL PO PRN : MED/SURG STATUS
--- NOTE | 2018-11-07 22:36 | General Progress Note ---
Assessment/Plan Assessment/Plan Assessment - enteritis - elevated WBC - now normalized - N/V - improved - Hematochezia - presumed hemorrhoidal Recommendations - advance po diet - monitor GI symptoms - IVF - d/c planning - Patient advised to f/u with GI as outpatient re rectal bleeding Subjective Allergies: Coded Allergies: No Known Allergies (Unverified , 08/09/14) Subjective seen this am mother at bedside better tolerating PO c/o hematochezia last night painless Objective Last 24 Hour Vital Signs Date Time Temp Pulse Resp B/P (MAP) Pulse Ox O2 Delivery O2 Flow Rate FiO2 11/07/18 18:25 99.5 11/07/18 16:00 100.6 76 18 122/85 (97) 99 11/07/18 12:00 98.6 65 18 130/85 (100) 99 11/07/18 09:00 Room Air 11/07/18 08:00 98.2 60 18 130/96 (107) 100 11/07/18 00:00 99.2 66 18 130/88 (102) 100 Intake and Output 11/06/18 11/07/18 18:59 06:59 Intake Total 350 ml 400 ml Balance 350 ml 400 ml Intake Oral 50 ml 400 ml IV Total 300 ml # Voids 2 4 Height (Feet): 5 Height (Inches): 6.00 Weight (Pounds): 150 Objective WDWN NCAT supple CTA RRR abd soft, some mild L sided TTP Rectal (both RN and RN policy change clerks supervisor present): No external lesions no edema Nata Barroso MD Nov 07, 2018 22:36
--- NOTE | 2018-11-08 09:40 | Discharge Summary ---
Discharge Summary Discharge Summary _ DATE OF ADMISSION: 11/04/2018 DATE OF DISCHARGE: 11/07/2018 ATTENDING MD: Dr. Luis Enrique Vargas DISCHARGED BY: Dr. Rolando Pierce CONSULTANTS: Dr. Malissa Sarmiento [facility] HOSPITAL COURSE: Patient is a 28-year-old female, who presented to the emergency room for evaluation and care of abdominal pain with nausea, and vomiting, over the past 3 -7 days. The patient was seen at [facility] the day prior. She was given IV medication and was discharged home. She returned complaining of nausea and vomiting, not able to eat or drink and to keep any thing down. Also complaining of low back pain. On evaluation at the ED, vital signs were stable. Blood work showed WBC of 13. Hemoglobin and hematocrit were stable. Electrolytes were normal. BUN was 25 , creatinine 1.4. Total bilirubin 1.2 direct bilirubin 0.3. 50s and lipase were normal. Serum hCG was 1. Urinalysis showed 2+ protein, 3+ ketone, 1+ leukocyte esterase, 0-2-hour urine RBC, 2-4 urine WBC. Urine hCG negative. CT of the abdomen and pelvis showed mild distention of small bowel loops with luminal air-fluid level suggesting either very mild ileus or enteritis. There was no evidence of bowel obstruction. She was then admitted for evaluation of nausea and vomiting, abdominal pain and acute kidney injury. She was given aggressive hydration. Kidney function was monitored. She was also complaining of low back pain and has been demanding for narcotics. GI was consulted. She was given symptomatic treatment. She was started on clear liquid diet, advanced as tolerated. Urine toxicology was positive for marijuana. Land Examiner was consulted for evaluation of bradycardia. 12-lead electrocardiogram showed evidence of bradycardia with no acute ischemic changes. 2D echocardiogram showed normal LV systolic function with LVEF of 60% . Normal right ventricular systolic pressure at 30 mmHg and mild pulmonary regurgitation. A dilated IVC at 2.5 with physiologic collapse suggestive of right atrial pressure slightly elevated at 10 mmHg. Patient was assessed to have sinus bradycardia, secondary to frequent episode of nausea and vomiting with stimulation of vagal tone. Bradycardia was controlled and echocardiogram did not show any structural heart abnormalities. She had low-grade fever. ID was consulted. She was observed off antibiotic treatment. Blood culture did not isolate any growth. WBC normalized. Kidney function normalized. Nausea and vomiting improved. She complained of hematochezia, presumed to be hemorrhoidal, as patient had a streak of blood after self digital disimpaction. She was eventually cleared for discharge. To follow-up with GI as outpatient. FINAL DIAGNOSES: Nausea and vomiting, likely due to acute viral gastroenteritis Acute kidney injury Hematochezia, presumed hemorrhoidal Sinus bradycardia, resolved, secondary to frequent episode of nausea and vomiting and stimulation of vagal tone History of asthma Narcotic seeking behavior DISPOSITION: Patient was discharged home. DISCHARGE MEDICATIONS: Refer to Discharge Medication List. DISCHARGE INSTRUCTIONS: Follow-up in a week. I have been assigned to complete a discharge summary on this account, I was not involved with the patient's management. Martha Daly NP Nov 08, 2018 09:40
== END 2018-11-07 18:00 | disposition home or self-care (01) | DRG 249 ==
LOC: EMR 08:10 → 3E 13:15 → EDBEDREQ 13:31 → 3E 15:20
DX: A08.4 Viral intestinal infection, unspecified (principal); N17.9 Acute kidney failure, unspecified; K64.9 Unspecified hemorrhoids; R00.1 Bradycardia, unspecified; Z76.5 Malingerer [conscious simulation]; I49.8 Other specified cardiac arrhythmias
CPT/HCPCS: 36415; 71045; 74177; 80048; 80053; 80307; 81003; 81025; 82248; 83690; 84702; 85025; 87040; 87086; 93306; 96361; 96374; 96375; 99285; J2405; J8499

== ENCOUNTER → 2020-02-07 | Emergency (ER) | payer SELFPAY ==
[~2020-02-07] VITALS: Ht 170.2 cm; Wt 63.5 kg
[~2020-02-07] MED LIST changes: +ACETAMINOPHEN-1 EAC1 ORAL; +CARAFATE1 G1 ORAL; +CEPHALEXIN500 M1 ORAL; +DICYCLOMINE HCL10 MG ORAL; +DiphenhydrAMINE 50mg/ml Inj IVP ONE; +FAMOTIDINE20 MG ORAL; +Hydromorphone 0.5mg/0.5ml inj IVP ONE; +Lidocaine 2% Visc 15ml soln ORAL ONE; +MAALOX ADVANCE1 EACH PO; +Metoclopramide 10mg/2ml Inj IVP ONE; +PROTONIX40 MG ORAL; +ZOFRAN ODT8 MG ORAL; +ZOFRAN4 MG ORAL
--- NOTE | 2020-02-07 12:32 | NUR ---
ED Nurse Note:PT. CAME FROM HOME WITH C/O ABDOMINAL PAIN, NAUSEA VOMITING AND SORE THROAT, a/oX4 AMBULATORY
--- NOTE | 2020-02-07 12:34 | Emergency Room Report ---
History of Present Illness General Chief Complaint: Nausea, Vomiting, and Diarrhea Source: Patient Present Illness HPI 29-year-old female history of gastritis presents with nausea vomiting, epigastric pain achy in nature x3 days no aggravating factors alleviated by tramadol, severity is moderate, constant patient endorses throat pain as well patient states that her gastritis is flaring up denies any chest pain shortness of breath no dyspnea on exertion patient feels dehydrated Allergies: Coded Allergies: No Known Allergies (Unverified , 08/09/14) COVID-19 Screening Contact w/high risk pt: No Recent Travel to affected area: No Experienced COVID-19 symptoms?: No COVID-19 Testing performed [employer] FLOORPERSON: No Patient History Past Medical History: see triage record Last Menstrual Period: na Now: No Reviewed Nursing Documentation: PMH: Agreed; PSxH: Agreed Nursing Documentation-PMH Past Medical History: No History, Except For Hx Asthma: Yes - Sports induce Hx Cancer: No Hx Gastrointestinal Problems: No Hx Neurological Problems: No Review of Systems All Other Systems: negative except mentioned in HPI Physical Exam Vital Signs Date Time Temp Pulse Resp B/P (MAP) Pulse Ox O2 Delivery O2 Flow Rate FiO2 02/07/20 12:19 99.0 79 17 126/91 (103) 98 Room Air Sp02 EP Interpretation: reviewed, normal General Appearance: well appearing, no apparent distress, alert Head: normocephalic, atraumatic Eyes: bilateral eye PERRL, bilateral eye EOMI ENT: uvula midline, dry mucus membranes Neck: supple, thyroid normal, supple/symm/no masses Respiratory: lungs clear, no respiratory distress, no retraction, no accessory muscle use Cardiovascular #1: normal peripheral pulses, regular rate, rhythm, no edema, no gallop, no murmur Gastrointestinal: non tender, soft, no guarding, no rebound Musculoskeletal: normal inspection Neurologic: alert, oriented x3 Psychiatric: mood/affect normal Skin: no rash, warm/dry Medical Decision Making Diagnostic Impression: Primary Impression: Nausea, vomiting, and diarrhea Additional Impressions: Gastritis Qualified Codes: K29.70 - Gastritis, unspecified, without bleeding UTI (urinary tract infection) Qualified Codes: N39.0 - Urinary tract infection, site not specified ER Course 29-year-old female pain resents with generalized abdominal pain differential diagnosis includes gastritis, gastroenteritis, appendicitis. Patient's abdomen is soft nontender no rebound no guarding, patient given rehydration 3L NS Reevaluation 1:25 PM patient's abdomen soft nontender she feels better with antinausea medications patient given fluid rehydration, patient with an elevated white count most likely elevated in the setting of acute stress reaction no indications of appendicitis, patient's abdomen soft nontender no rebound no guarding Patient also reports dysuria times a few days, will treat patient with Keflex Abdominal return precautions were given to patient Disposition home with return precautions follow-up with PCP Laboratory Tests Test 02/07/20 12:20 White Blood Count 17.7 K/UL (4.8-10.8) H Red Blood Count 4.78 M/UL (4.20-5.40) Hemoglobin 14.9 G/DL (12.0-16.0) Hematocrit 42.0 % (37.0-47.0) Mean Corpuscular Volume 88 FL (80-99) Mean Corpuscular Hemoglobin 31.2 PG (27.0-31.0) H Mean Corpuscular Hemoglobin Concent 35.6 G/DL (32.0-36.0) Red Cell Distribution Width 11.2 % (11.6-14.8) L Platelet Count 231 K/UL (150-450) Mean Platelet Volume 6.8 FL (6.5-10.1) Neutrophils (%) (Auto) 83.5 % (45.0-75.0) H Lymphocytes (%) (Auto) 8.7 % (20.0-45.0) L Monocytes (%) (Auto) 7.4 % (1.0-10.0) Eosinophils (%) (Auto) 0.0 % (0.0-3.0) Basophils (%) (Auto) 0.4 % (0.0-2.0) Urine Color Yellow Urine Appearance Clear Urine pH 7 (4.5-8.0) Urine Specific [place] 1.010 (1.005-1.035) Urine Protein 2+ (NEGATIVE) H Urine Glucose (UA) Negative (NEGATIVE) Urine Ketones 2+ (NEGATIVE) H Urine Blood 4+ (NEGATIVE) H Urine Nitrite Negative (NEGATIVE) Urine Bilirubin Negative (NEGATIVE) Urine Urobilinogen Normal MG/DL (0.0-1.0) Urine Leukocyte Esterase 1+ (NEGATIVE) H Urine RBC 5-10 /HPF (0 - 2) H Urine WBC 2-4 /HPF (0 - 2) Urine Squamous Epithelial Cells Moderate /LPF (NONE/OCC) H Urine Bacteria Few /HPF (NONE) Urine Mucus Moderate /LPF (NONE/OCC) H Urine HCG, Qualitative Negative (NEGATIVE) Sodium Level 138 MMOL/L (136-145) Potassium Level 3.6 MMOL/L (3.5-5.1) Chloride Level 97 MMOL/L (98-107) L Carbon Dioxide Level 30 MMOL/L (21-32) Anion Gap 11 mmol/L (5-15) Blood Urea Nitrogen 35 mg/dL (7-18) H Creatinine 1.8 MG/DL (0.55-1.30) H Estimated Glomerular Filtration Rate 40.2 mL/min (>60) Glucose Level 129 MG/DL (74-106) H Calcium Level 9.6 MG/DL (8.5-10.1) Total Bilirubin 0.9 MG/DL (0.2-1.0) Aspartate Amino Transferase (AST) 36 U/L (15-37) Alanine Aminotransferase (ALT) 24 U/L (12-78) Alkaline Phosphatase 44 U/L (46-116) L Total Protein 8.8 G/DL (6.4-8.2) H Albumin 4.7 G/DL (3.4-5.0) Globulin 4.1 g/dL Albumin/Globulin Ratio 1.1 (1.0-2.7) Lipase 102 U/L (73-393) Urine Opiates Screen Negative (NEGATIVE) Urine Barbiturates Screen Negative (NEGATIVE) Phencyclidine (PCP) Screen Negative (NEGATIVE) Urine Amphetamines Screen Negative (NEGATIVE) Urine Benzodiazepines Screen Negative (NEGATIVE) Urine Cocaine Screen Negative (NEGATIVE) Urine Marijuana (THC) Screen Positive (NEGATIVE) H Last Vital Signs Date Time Temp Pulse Resp B/P (MAP) Pulse Ox O2 Delivery O2 Flow Rate FiO2 02/07/20 12:19 99.0 79 17 126/91 (103) 98 Room Air Disposition: HOME, SELF-CARE Condition: Stable Scripts Cephalexin* (KEFLEX*) 500 Mg Tablet 500 MG ORAL EVERY 6 HOURS, #20 CAP Prov: Moe Salinas MD 02/07/20 Ondansetron (Zofran) 4 Mg Tablet 4 MG ORAL Q8H PRN for Nausea & Vomiting, #10 TAB 0 Refills Prov: Moe Salinas MD 02/07/20 Calcium Carbonate/Simethicone (MAALOX ADVANCED TAB CHEW) 1 Each Tab.chew 1 EACH PO DAILY, #7 TAB Prov: Moe Salinas MD 02/07/20 Sucralfate* (CARAFATE*) 1 Gm Tablet 1 GM ORAL FOUR TIMES A DAY, #28 TAB Prov: Moe Salinas MD 02/07/20 Referrals: [facility]. [facility] Patient Instructions: Gastritis, Adult, [id number], Urinary Tract Infection, [id number] Additional Instructions: The patient was provided with discharge instructions, notified to follow-up with a primary care doctor and or specialist in the next 24-48 hours, and to return to the ED if they have worsening of their symptoms. Please note that this report is being documented using DRAGON technology. This can lead to erroneous entry secondary to incorrect interpretation by the dictating instrument. Moe Salinas MD February 07, 2020 12:34
[2020-02-07 12:49] VITALS: BP 126/91
[2020-02-07 13:09] LABS: BASOPHILS % (AUTO) 0.4 % (0.0-2.0); HEMOGLOBIN 14.9 G/DL (12.0-16.0); LYMPHOCYTES % (AUTO) 8.7 % (20.0-45.0); MEAN CORPUSCULAR VOLUME 88 FL (80-99); MONOCYTES % (AUTO) 7.4 % (1.0-10.0); NEUTROPHILS % (AUTO) 83.5 % (45.0-75.0); PLATELET COUNT 231 K/UL (150-450); RED BLOOD COUNT 4.78 M/UL (4.20-5.40); RED CELL DISTRIBUTION WIDTH 11.2 % (11.6-14.8); WHITE BLOOD COUNT 17.7 K/UL (4.8-10.8)
[2020-02-07 13:12] LABS: APPEARANCE,URINE CLEAR; BILIRUBIN, URINE NEGATIVE (NEGATIVE); COLOR,URINE YELLOW; GLUCOSE, URINE (UA) NEGATIVE (NEGATIVE); KETONES,URINE 2+ (NEGATIVE); LEUKOCYTE ESTERASE ,URINE 1+ (NEGATIVE); NITRITE,URINE NEGATIVE (NEGATIVE); PH,URINE 7 (4.5-8.0); PROTEIN,URINE 2+ (NEGATIVE); UROBILINOGEN,URINE NORMAL MG/DL (0.0-1.0)
[2020-02-07 13:26] LABS: ANION GAP 11 mmol/L (5-15); BLOOD UREA NITROGEN 35 mg/dL (7-18); CALCIUM 9.6 MG/DL (8.5-10.1); CARBON DIOXIDE 30 MMOL/L (21-32); CHLORIDE 97 MMOL/L (98-107); CREATININE 1.8 MG/DL (0.55-1.30); POTASSIUM 3.6 MMOL/L (3.5-5.1); SODIUM 138 MMOL/L (136-145)
[2020-02-07 13:33] LABS: ALANINE AMINOTRANSFERASE 24 U/L (12-78); ALBUMIN 4.7 G/DL (3.4-5.0); ALBUMIN/GLOBULIN RATIO 1.1 (1.0-2.7); ALKALINE PHOSPHATASE 44 U/L (46-116); ASPARTATE AMINO TRANSFERASE 36 U/L (15-37); BILIRUBIN,TOTAL 0.9 MG/DL (0.2-1.0)
--- NOTE | 2020-02-07 13:36 | NUR ---
ED Nurse Note:pt. was given IV fluids and meds VSS,
== END | disposition home or self-care (01) ==
LOC: EMR 12:45
DX: K29.70 Gastritis, unspecified, without bleeding (principal); N39.0 Urinary tract infection, site not specified; J45.909 Unspecified asthma, uncomplicated
CPT/HCPCS: 36415; 80053; 80307; 81003; 81025; 83690; 85025; 96361; 96374; 96375; 99284; J1170; J1200; J2405; J2765; J7030

== ENCOUNTER 2020-02-08 06:49 | Emergency (ER) | payer MEDICAID ==
[~2020-02-08] VITALS: Ht 170.2 cm; Wt 68.0 kg
[~2020-02-08 06:49] MED LIST changes: -ACETAMINOPHEN-1 EAC1 ORAL; -DICYCLOMINE HCL10 MG ORAL; -DiphenhydrAMINE 50mg/ml Inj IVP ONE; -FAMOTIDINE20 MG ORAL; -Hydromorphone 0.5mg/0.5ml inj IVP ONE; -Lidocaine 2% Visc 15ml soln ORAL ONE; -Metoclopramide 10mg/2ml Inj IVP ONE; -PROTONIX40 MG ORAL
[2020-02-08] MEDS ORDERED: Morphine Sulfate 4mg/ml Inj (IV USE ONLY) IVP ONE (07:00)
[2020-02-08] MEDS ORDERED: Omnipaque-300 100ml vial INJ PRN (07:00)
--- NOTE | 2020-02-08 07:06 | Emergency Room Report ---
History of Present Illness General Chief Complaint: Abdominal Pain Source: Patient Present Illness HPI Disclaimer: Please note that this report is being documented using [email or web address] technology. This can lead to erroneous entry secondary to incorrect interpretation by the dictating instrument. HPI: 29-year-old female with history of gastritis presents for evaluation of abdominal pain. The patient states she has had worsening abdominal pain and cramping for the past 3 days, difficulty eating and drinking with multiple episodes of nonbloody nonbilious emesis and decreased bowel movements. She states she has not passed a bowel movement in 3 days and is passing less gas than usual. Seen in the emergency department yesterday and treated symptomatically and reports improvement in her pain however returned last night approximately 9 PM. Reports pain is in the epigastrium and lower quadrants bilaterally though sometimes worse in the right lower quadrant. Pain is 8/10 currently. She was taken off of Protonix and Pepcid reportedly by her customer success intern in preparation for H. pylori test. PMH: Gastritis PSH: Denies Allergies: Denies Social Hx: Marijuana use Allergies: Coded Allergies: No Known Allergies (Unverified , 08/09/14) COVID-19 Screening Contact w/high risk pt: No Recent Travel to affected area: No Experienced COVID-19 symptoms?: No COVID-19 Testing performed SHIP MATE: No Patient History Last Menstrual Period: 01/04/20 Nursing Documentation-PMH Past Medical History: No History, Except For Hx Asthma: Yes - Sports induce Hx Cancer: No Hx Gastrointestinal Problems: No Hx Neurological Problems: No Review of Systems All Other Systems: negative except mentioned in HPI Physical Exam Vital Signs Date Time Temp Pulse Resp B/P (MAP) Pulse Ox O2 Delivery O2 Flow Rate FiO2 02/08/20 06:51 98.2 63 18 124/75 (91) 99 Room Air General: Awake and alert, no acute distress HEENT: NC/AT. EOMI. Cardiovascular: RRR. S1 and S2 normal. No murmur appreciated Resp: Normal work of breathing. No cough, wheezing or crackles appreciated Abdomen: Abdomen is soft, nondistended. Tender to palpation in the epigastrium mild tenderness in the suprapubic and right lower quadrant region without rebound or mass. Skin: Intact. No abrasions, laceration or rash over the exposed skin MSK: Normal tone and bulk. Moving all extremities. No obvious deformity. Neuro: Awake and alert. Mentating appropriately. Medical Decision Making Diagnostic Impression: Primary Impression: Cystitis Additional Impression: Esophagitis ER Course 29-year-old female with a history of gastritis presents for evaluation of abdominal pain and vomiting. Differential includes was not limited to gastritis , gastroenteritis, appendicitis, bowel obstruction, pancreatitis, cholecystitis , UTI, pyelonephritis to name a few. Patient had an elevated white count yesterday was treated for UTI however has persistent symptoms. May be worsening of her gastritis however must evaluate for appendicitis and a CT scan and broad labs will be obtained. IV line obtained, patient receiving antiemetics, pain medication and IV fluids. Labs showed an improving creatinine no signs of significant infection. White count is downtrending from previous admission. CT scan was obtained showing no evidence of appendicitis, incarcerated hernia, obstruction or other significant pathology. Some findings consistent with esophagitis and cystitis consistent with the patient's history. Will restart on Protonix and famotidine. Follow-up with outpatient GI for further treatment and testing. We will continue antibiotics. Laboratory Tests Test 02/08/20 06:50 02/08/20 07:00 Urine Color Yellow Urine Appearance Clear Urine pH 6.5 (4.5-8.0) Urine Specific [place] 1.015 (1.005-1.035) Urine Protein 2+ (NEGATIVE) H Urine Glucose (UA) Negative (NEGATIVE) Urine Ketones 3+ (NEGATIVE) H Urine Blood 2+ (NEGATIVE) H Urine Nitrite Negative (NEGATIVE) Urine Bilirubin Negative (NEGATIVE) Urine Urobilinogen 1 MG/DL (0.0-1.0) H Urine Leukocyte Esterase 1+ (NEGATIVE) H Urine RBC 0-2 /HPF (0 - 2) Urine WBC 0-2 /HPF (0 - 2) Urine Squamous Epithelial Cells Few /LPF (NONE/OCC) Urine Bacteria Few /HPF (NONE) Urine Mucus Moderate /LPF (NONE/OCC) H Urine HCG, Qualitative Negative (NEGATIVE) White Blood Count 16.7 K/UL (4.8-10.8) H Red Blood Count 4.18 M/UL (4.20-5.40) L Hemoglobin 13.2 G/DL (12.0-16.0) Hematocrit 36.8 % (37.0-47.0) L Mean Corpuscular Volume 88 FL (80-99) Mean Corpuscular Hemoglobin 31.5 PG (27.0-31.0) H Mean Corpuscular Hemoglobin Concent 35.8 G/DL (32.0-36.0) Red Cell Distribution Width 11.1 % (11.6-14.8) L Platelet Count 202 K/UL (150-450) Mean Platelet Volume 7.6 FL (6.5-10.1) Neutrophils (%) (Auto) 81.2 % (45.0-75.0) H Lymphocytes (%) (Auto) 11.6 % (20.0-45.0) L Monocytes (%) (Auto) 6.6 % (1.0-10.0) Eosinophils (%) (Auto) 0.0 % (0.0-3.0) Basophils (%) (Auto) 0.6 % (0.0-2.0) Sodium Level 142 MMOL/L (136-145) Potassium Level 3.5 MMOL/L (3.5-5.1) Chloride Level 104 MMOL/L (98-107) Carbon Dioxide Level 27 MMOL/L (21-32) Anion Gap 11 mmol/L (5-15) Blood Urea Nitrogen 23 mg/dL (7-18) H Creatinine 1.4 MG/DL (0.55-1.30) H Estimated Glomerular Filtration Rate 53.8 mL/min (>60) Glucose Level 125 MG/DL (74-106) H Calcium Level 8.9 MG/DL (8.5-10.1) Total Bilirubin 1.1 MG/DL (0.2-1.0) H Direct Bilirubin 0.3 MG/DL (0.0-0.3) Aspartate Amino Transferase (AST) 38 U/L (15-37) H Alanine Aminotransferase (ALT) 25 U/L (12-78) Alkaline Phosphatase 37 U/L (46-116) L Total Protein 7.0 G/DL (6.4-8.2) Albumin 4.2 G/DL (3.4-5.0) Globulin 2.8 g/dL Albumin/Globulin Ratio 1.5 (1.0-2.7) Lipase 161 U/L (73-393) CT/MRI/US Diagnostic Results CT/MRI/US Diagnostic Results : Impression Final Report EXAM: CT Abdomen and Pelvis With Intravenous Contrast CLINICAL HISTORY: ABD PAIN TECHNIQUE: Axial computed tomography images of the abdomen and pelvis with intravenous contrast. CTDI is 4.4 mGy and DLP is 227.5 mGy-cm. One or more of the following dose reduction techniques were used: automated exposure control, adjustment of the mA and/or kV according to patient size, use of iterative reconstruction technique. COMPARISON: CT abdomen/pelvis on 11/04/2018 images are not entirely available at the time of interpretation FINDINGS: Lung bases: Unremarkable. No mass. No consolidation. Mediastinum: Prominence of the wall of the visualized distal esophagus is concerning for esophagitis. ABDOMEN: Liver: Unremarkable. No mass. Gallbladder and bile ducts: Unremarkable. No calcified stones. No ductal dilation. Pancreas: Unremarkable. No mass. No ductal dilation. Spleen: Unremarkable. No splenomegaly. Adrenals: Unremarkable. No mass. Kidneys and ureters: Question patchy hypoattenuation in the kidneys versus artifact. Pyelonephritis is not excluded. Small hypodensity in the left kidney is too small to definitively characterize. No hydronephrosis or obstructing stone. Retroaortic left renal vein. Stomach and bowel: Underdistended sigmoid colon and descending colon limits evaluation. No bowel obstruction. No mucosal thickening. PELVIS: Appendix: Normal appendix. Bladder: Prominence of the bladder wall may be at least in part accentuated by underdistention. Please correlate with urinalysis to evaluate for cystitis. Reproductive: Collapsing cyst or corpus luteum in the left ovary. ABDOMEN and PELVIS: Intraperitoneal space: Small amount of free fluid in the pelvis. No free air. Bones/joints: No acute fracture. No dislocation. Soft tissues: Unremarkable. Vasculature: See above. Lymph nodes: Unremarkable. No enlarged lymph nodes. IMPRESSION: 1. Prominence of the wall of the visualized distal esophagus is concerning for esophagitis. 2. Question patchy hypoattenuation in the kidneys versus artifact. Pyelonephritis is not excluded. 3. Prominence of the bladder wall may be at least in part accentuated by underdistention. Please correlate with urinalysis to evaluate for cystitis. 4. Small amount of free fluid in the pelvis. Radiologist: Jerad Kim M.D. Electronically Signed: 02/08/20 10:48 Study ready at 10:38 and initial results transmitted at 10:48 Last Vital Signs Date Time Temp Pulse Resp B/P (MAP) Pulse Ox O2 Delivery O2 Flow Rate FiO2 02/08/20 06:51 98.2 63 18 124/75 (91) 99 Room Air Disposition: HOME, SELF-CARE Condition: Stable Scripts Dicyclomine Hcl* (DICYCLOMINE HCL*) 10 Mg Capsule 10 MG ORAL QID, #20 CAP Prov: Collin Danielle MD 02/08/20 Ondansetron (Zofran) 4 Mg Tablet 4 MG ORAL Q8H PRN for Nausea & Vomiting, #10 TAB 0 Refills Prov: Collin Danielle MD 02/08/20 Pantoprazole* (PROTONIX*) 40 Mg Tablet.dr 40 MG ORAL DAILY for 30 Days, #3 TAB Prov: Collin Danielle MD 02/08/20 Famotidine* (Pepcid 20mg tablet*) 20 Mg Tablet 20 MG ORAL DAILY, #30 TAB 0 Refills Prov: Collin Danielle MD 02/08/20 Collin Danielle MD February 08, 2020 07:05
[2020-02-08] MEDS ORDERED: Ketorolac 30mg Inj IV ONE (07:15)
[2020-02-08 07:27] LABS: BASOPHILS % (AUTO) 0.6 % (0.0-2.0); HEMATOCRIT 36.8 % (37.0-47.0); HEMOGLOBIN 13.2 G/DL (12.0-16.0); LYMPHOCYTES % (AUTO) 11.6 % (20.0-45.0); MEAN CORPUSCULAR VOLUME 88 FL (80-99); MONOCYTES % (AUTO) 6.6 % (1.0-10.0); NEUTROPHILS % (AUTO) 81.2 % (45.0-75.0); PLATELET COUNT 202 K/UL (150-450); RED BLOOD COUNT 4.18 M/UL (4.20-5.40); RED CELL DISTRIBUTION WIDTH 11.1 % (11.6-14.8); WHITE BLOOD COUNT 16.7 K/UL (4.8-10.8)
[2020-02-08 08:02] LABS: APPEARANCE,URINE CLEAR; BILIRUBIN, URINE NEGATIVE (NEGATIVE); GLUCOSE, URINE (UA) NEGATIVE (NEGATIVE); KETONES,URINE 3+ (NEGATIVE); LEUKOCYTE ESTERASE ,URINE 1+ (NEGATIVE); NITRITE,URINE NEGATIVE (NEGATIVE); PH,URINE 6.5 (4.5-8.0); PROTEIN,URINE 2+ (NEGATIVE); UROBILINOGEN,URINE 1 MG/DL (0.0-1.0)
[2020-02-08 08:03] LABS: COLOR,URINE YELLOW
[2020-02-08 08:09] LABS: ANION GAP 11 mmol/L (5-15); BLOOD UREA NITROGEN 23 mg/dL (7-18); CALCIUM 8.9 MG/DL (8.5-10.1); CARBON DIOXIDE 27 MMOL/L (21-32); CHLORIDE 104 MMOL/L (98-107); CREATININE 1.4 MG/DL (0.55-1.30); POTASSIUM 3.5 MMOL/L (3.5-5.1); SODIUM 142 MMOL/L (136-145)
[2020-02-08 08:15] LABS: ALANINE AMINOTRANSFERASE 25 U/L (12-78); ALBUMIN 4.2 G/DL (3.4-5.0); ALBUMIN/GLOBULIN RATIO 1.5 (1.0-2.7); ALKALINE PHOSPHATASE 37 U/L (46-116); ASPARTATE AMINO TRANSFERASE 38 U/L (15-37); BILIRUBIN,TOTAL 1.1 MG/DL (0.2-1.0)
[2020-02-08] MEDS ORDERED: Cephalexin 500mg cap ORAL ONE (08:15)
[2020-02-08 08:29] LABS: BILIRUBIN,DIRECT 0.3 MG/DL (0.0-0.3)
--- NOTE | 2020-02-08 10:49 | Diagnostic Imaging Report ---
EXAM: CT Abdomen and Pelvis With Intravenous Contrast CLINICAL HISTORY: ABD PAIN TECHNIQUE: Axial computed tomography images of the abdomen and pelvis with intravenous contrast. CTDI is 4.4 mGy and DLP is 227.5 mGy-cm. One or more of the following dose reduction techniques were used: automated exposure control, adjustment of the mA and/or kV according to patient size, use of iterative reconstruction technique. COMPARISON: CT abdomen/pelvis on 11/04/2018 images are not entirely available at the time of interpretation FINDINGS: Lung bases: Unremarkable. No mass. No consolidation. Mediastinum: Prominence of the wall of the visualized distal esophagus is concerning for esophagitis. ABDOMEN: Liver: Unremarkable. No mass. Gallbladder and bile ducts: Unremarkable. No calcified stones. No ductal dilation. Pancreas: Unremarkable. No mass. No ductal dilation. Spleen: Unremarkable. No splenomegaly. Adrenals: Unremarkable. No mass. Kidneys and ureters: Question patchy hypoattenuation in the kidneys versus artifact. Pyelonephritis is not excluded. Small hypodensity in the left kidney is too small to definitively characterize. No hydronephrosis or obstructing stone. Retroaortic left renal vein. Stomach and bowel: Underdistended sigmoid colon and descending colon limits evaluation. No bowel obstruction. No mucosal thickening. PELVIS: Appendix: Normal appendix. Bladder: Prominence of the bladder wall may be at least in part accentuated by underdistention. Please correlate with urinalysis to evaluate for cystitis. Reproductive: Collapsing cyst or corpus luteum in the left ovary. ABDOMEN and PELVIS: Intraperitoneal space: Small amount of free fluid in the pelvis. No free air. Bones/joints: No acute fracture. No dislocation. Soft tissues: Unremarkable. Vasculature: See above. Lymph nodes: Unremarkable. No enlarged lymph nodes. IMPRESSION: 1. Prominence of the wall of the visualized distal esophagus is concerning for esophagitis. 2. Question patchy hypoattenuation in the kidneys versus artifact. Pyelonephritis is not excluded. 3. Prominence of the bladder wall may be at least in part accentuated by underdistention. Please correlate with urinalysis to evaluate for cystitis. 4. Small amount of free fluid in the pelvis.
[2020-02-08] MEDS ORDERED: PROTONIX40 MG ORAL (10:55)
[2020-02-08] MEDS ORDERED: FAMOTIDINE20 MG ORAL (10:55)
[2020-02-08] MEDS ORDERED: Dicyclomine HCl 10mg/5ml oral soln ORAL ONE (11:00)
[2020-02-08] MEDS ORDERED: Lidocaine 2% Visc 15ml soln ORAL ONE (11:00)
[2020-02-08] MEDS ORDERED: Mylanta II UD 30ml ORAL ONE (11:00)
[2020-02-08] MEDS ORDERED: ZOFRAN4 MG ORAL (11:49)
[2020-02-08] MEDS ORDERED: DICYCLOMINE HCL10 MG ORAL (11:49)
[2020-02-08 11:51] VITALS: BP 122/76
[2020-02-08] MEDS ORDERED: ACETAMINOPHEN-1 EAC1 ORAL (13:55)
== END 2020-02-08 11:51 | disposition home or self-care (01) ==
LOC: EMR 07:18
DX: N30.90 Cystitis, unspecified without hematuria (principal); K20.9 Esophagitis, unspecified
CPT/HCPCS: 36415; S0028; 74177; 80053; 81003; 81025; 82248; 83690; 85025; 99284; J7030